=== PATIENT | male | born 1985 | race Caucasian/White ===

== ENCOUNTER 2018-03-03 13:49 | Emergency (ER) | payer BC, OTHER ==
[2018-03-03] MEDS ORDERED: TETANUS & DIPHTHERIA TOX,ADULT 0.5 ML VIAL ONE (15:42)
[2018-03-03] MEDS ORDERED: HYDROCODONE/APAP 5/325 MG TAB ONE (15:43)
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
[2018-03-03 17:11] VITALS: BP 132/79; TEMP 98.1; O2SAT 99
== END 2018-03-03 17:07 | disposition home or self-care (01) ==
LOC: ER 13:49
DX: M79.1 Myalgia (principal); V94.89XA Other water transport accident, initial encounter; Z23 Encounter for immunization
CPT/HCPCS: 71046; 72100; 90714; 99283